=== PATIENT | female | born 1955 | race Caucasian/White ===

== ENCOUNTER → 2020-01-09 15:56 | Outpatient (BNVA) | payer MEDICARE, SELFPAY | PROVIDERS: Family Provider Nurse Practitioner Family; PCP Nurse Practitioner Family; Visit Provider Emergency Medicine | DX: Z11.59 Encounter for screening for other viral diseases (principal); B34.9 Viral infection, unspecified; M54.9 Dorsalgia, unspecified | CPT/HCPCS: 81000; 87635 ==

== ENCOUNTER 2020-01-15 17:13 | Emergency (ER) | payer MEDICARE, SELFPAY ==
[2020-01-15 17:18] VITALS: BP 165/102; PULSE 107; RESP 18; TEMP 36.3; O2SAT 97
[2020-01-15 17:20] VITALS: BMI 34.7
--- NOTE | 2020-01-15 18:18 | ED_ITS ---
HPI - General Adult General: Chief complaint: General Medical Stated complaint: abd pain and side pain Time Seen by Provider: 01/15/20 17:51 Source: patient Mode of arrival: ambulatory Limitations: no limitations History of Present Illness: HPI narrative: 65-year-old female comes in today with multiple complaints. Patient reports since the first of the month she has been ill with malaise, some sores in her mouth, nausea and diarrhea. Patient denies any weight loss. Patient was treated for [id number]-[id number]-mouth. Patient appears well. Patient appears in no pain. Patient has a history of reflux. Patient states that she continues to have diarrhea and cramping in her abdomen. Patient reports that reminds her when she had her gallbladder problems. Review of Systems General: Reports: 10 or more systems reviewed and unremarkable except in HPI and below GI: Reports: abdominal pain and diarrhea PFSH ED PFSH: Social History (Updated 01/09/20 @ 15:56 by Miranda Malcolm CMA) Smoking and tobacco status: never smoked Alcohol intake: never Physical Exam Const: COMMON NORMALS: no acute distress and patient oriented x3 GENERAL APPEARANCE: cooperative HENMT: COMMON NORMALS: normocephalic and Normal external nose present HEAD & SCALP: normal to inspection and normocephalic NOSE: Normal external nose present MOUTH: Normal oral and palatal mucosa present THROAT: posterior oropharynx normal Eye: GENERAL EYE: appearance normal, both eyes and all related structures Neck/C-Spine: COMMON NORMALS: full ROM Lymph: LYMPHATIC: no lymphadenopathy noted Chest: COMMONS NORMALS: normal inspection of the chest Resp: COMMON NORMALS: normal respiratory effort EFFORT & INSPECTION: Yes able to speak in complete sentences Cardio: COMMON NORMALS: regular rate and regular rhythm RATE: regular rate RHYTHM: regular rhythm GI: COMMON NORMALS: non-tender : COMMON NORMALS: Yes no CVA tenderness BLADDER/KIDNEY EXAM: Yes no CVA tenderness Back/Pelvis: COMMON NORMALS: no CVA tenderness and thoracic and lumbar spine normal to inspection Extremity: COMMON NORMALS: normal to inspection Neuro: COMMON NORMALS: patient oriented x3 and moves all extremities Psych: COMMON NORMALS: mental status grossly normal and cooperative Skin: COMMON NORMALS: no rashes or lesions noted GENERAL SKIN EXAM: no rashes or lesions noted Course Vital Signs: Vital signs: Vital Signs Temperature 97.3 F L 01/15/20 17:18 Pulse Rate 107 H 01/15/20 17:18 Respiratory Rate 18 01/15/20 17:18 Blood Pressure 165/102 01/15/20 17:18 Pulse Oximetry 97 01/15/20 17:18 MDM - General Adult MDM Narrative: Medical decision making narrative: Patient comes in today with complaints of persistent diarrhea and nausea. Patient was diagnosed with a viral syndrome at the first of the month and think she is continues to have dif ficulties with this virus. Exam is normal. Vital signs are normal. No signs of significant illness or injury is noted. Differential diagnosis includes dehydration, urinary tract infection, pancreatitis. Laboratory values were normal. Reviewed exam with patient with recommendations for treatment and follow-up. Patient reported understanding and agreed to plan. Lab Data: Labs: Lab Results 01/15/20 01/15/20 01/15/20 Range/Units 18:00 18:20 18:20 WBC 9.0 (4.0-10.0) 10^3/ uL RBC 4.92 (4.1-5.3) 10^6/u L Hgb 14.4 (11.5-15.3) g/dL Hct 43.5 (37.0-47.0) % MCV 88.4 (81-99) fL MCH 29.3 (28.0-34.0) pg MCHC 33.1 (30.0-36.0) g/dL RDW 13.3 (12.1-15.1) % Plt Count 251 (130-400) 10^3/c mm MPV 12.0 H (7.4-10.4) fL Neut % (Auto) 64.1 % Lymph % (Auto) 26.8 % [place] % (Auto) 6.0 % Eos % (Auto) 1.8 % Baso % (Auto) 1.1 % Neut # (Auto) 5.75 (1.8-7.7) 10^3/u L Lymph # (Auto) 2.4 (0.8-4.8) 10^3/u L [place] # (Auto) 0.5 (0.2-0.9) 10^3/u L Eos # (Auto) 0.2 (0.0-0.8) 10^3/u L Baso # (Auto) 0.1 (0.0-0.1) 10^3/u L Nucleated RBC % (a uto) 0 % Nucleated RBCs # 0.0 /100WBC Sodium 136 (136-145) mmol/L Potassium 3.7 (3.5-5.1) mmol/L Chloride 98 (98-107) mmol/L Carbon Dioxide 28 (22-29) mmol/L Anion Gap 13.7 (5-19) BUN 7 L (8-23) mg/dL Creatinine 0.6 (0.5-0.9) mg/dL GFR Calculation 101.0 (90-130) mL/min Glucose 115 (65-115) mg/dL Calculated Osmolal ity 279 L (285-295) mOsm/k g Calcium 9.3 (8.5-10.5) mg/dL Total Bilirubin 0.5 (0.15-1.2) mg/dL AST 10 (0-32) U/L ALT 8 (0-33) U/L Alkaline Phosphata se 71 (35-105) IU/L Total Protein 7.8 (6.6-8.7) g/dL Albumin 4.7 (3.5-5.2) g/dL Globulin 3.1 (1.3-4.6) g/dL Urine Color Yellow (Yellow) Urine Appearance Clear (CLEAR) Urine pH 7 (5-7) Ur Specific Gravit y 1.005 (1.005-1.030) Urine Protein Neg (Negative) Urine Glucose (UA) Norm (Normal) Urine Ketones Negative (Negative) Urine Blood Neg (Negative) Urine Nitrate Negative (Negative) Urine Bilirubin Neg (NEGATIVE) Urine Urobilinogen Norm (Negative) mg/dL Ur Leukocyte Fouzia ase Negative (Negative) Discharge Plan Discharge Patient Disposition: Home Clinical Impression: Viral syndrome Condition: Stable Prescriptions: No Action esomeprazole magnesium [Nexium] 20 mg capsule,delayed release(DR/EC) 20 mg PO DAILY RF: 0 acetaminophen [Tylenol] 325 mg tablet 325 mg PO QID PRNRF: 0 fluticasone propionate 50 mcg/actuation spray,suspension 1 spray INTRANASAL DAILY RF: 0 prednisone 10 mg tablet 30 mg PO DAILY 5 Days Qty: 15 RF: 0 methocarbamol [Robaxin-750] 750 mg tablet 750 mg PO .twice daily 5 Days Qty: 10 RF: 0 Discharge Orders: Discharge Order (Routine); Ordered 01/15/20 Ordered By: Angel Hernandez Referrals: David Ha FNP [Primary Care Provider] - Discharge Diet: Usual diet Discharge Activity: Increase activity as tolerated Activity Restrictions/Additional Instructions: Drink plenty of fluids. Continue with routine medications as directed. Monitor for high fever or blood in vomit or stool. Follow-up with primary care for recheck in 1 week. Return to the emergency department for new concerns. Coding Level of Care Code ED Forensic Computer Examiner for Marlin Fwd Exam Comprehensive
[2020-01-15 18:20] LABS: Add Urine Microscopic? NO
[2020-01-15 18:28] LABS: Basophils # 0.1 10^3/uL (0.0-0.1); Basophils % 1.1 %; Eosinophils # 0.2 10^3/uL (0.0-0.8); Eosinophils % 1.8 %; Hematocrit 43.5 % (37.0-47.0); Hemoglobin 14.4 g/dL (11.5-15.3); Lymphocytes # 2.4 10^3/uL (0.8-4.8); Lymphocytes % 26.8 %; Mean Corpuscular HGB Conc 33.1 g/dL (30.0-36.0); Mean Corpuscular Hemoglobin 29.3 pg (28.0-34.0); Mean Corpuscular Volume 88.4 fL (81-99); Monocytes # 0.5 10^3/uL (0.2-0.9); Neutrophils # 5.75 10^3/uL (1.8-7.7); Neutrophils % 64.1 %; Nucleated Red Blood Cells % 0 %; Platelet Count 251 10^3/cmm (130-400); Red Blood Count 4.92 10^6/uL (4.1-5.3); Red Cell Distribution Width 13.3 % (12.1-15.1)
[2020-01-15 18:31] LABS: Specific Gravity, Urine 1.005 (1.005-1.030); Urine Appearance Clear (CLEAR); Urine Color Yellow (Yellow); pH Urine 7 (5-7)
[2020-01-15 18:32] LABS: Bilirubin Urine Neg (NEGATIVE); Blood Urine Neg (Negative); Glucose Urine UA Norm (Normal); Ketones Urine Negative (Negative); Leukocyte Esterase Urine Negative (Negative); Nitrate Urine Negative (Negative); Protein Urine Neg (Negative); Urobilinogen Urine Norm (Negative)
[2020-01-15 18:47] LABS: Alanine Aminotransferase 8 U/L (0-33); Albumin Level 4.7 g/dL (3.5-5.2); Alkaline Phosphatase 71 IU/L (35-105); Anion Gap 13.7 (5-19); Aspartate Amino Transferase 10 U/L (0-32); Blood Urea Nitrogen 7 mg/dL (8-23); Calcium 9.3 mg/dL (8.5-10.5); Carbon Dioxide 28 mmol/L (22-29); Chloride 98 mmol/L (98-107); Globulin 3.1 g/dL (1.3-4.6); Glucose 115 mg/dL (65-115); Osmolality Calculated 279 mOsm/kg (285-295); Potassium 3.7 mmol/L (3.5-5.1); Sodium 136 mmol/L (136-145); Total Bilirubin 0.5 mg/dL (0.15-1.2); Total Protein 7.8 g/dL (6.6-8.7)
--- NOTE | 2020-01-15 19:00 | XR_ITS ---
WS: [id number] EXAM: ABDOMINAL KUB DATE OF EXAMINATION: 01/15/2020, 1909 hours COMPARISON: None. HISTORY: Patient is 65 years old with abdominal pain. Hives. FINDINGS: The bowel gas pattern is normal. I suspect a small calcification overlying the mid left kidney silhou ette may be 2 mm in size. No other calcification is seen to suggest renal or ureteral calculi. Severa l calcifications in the pelvis are felt to represent phleboliths. Surgical clips in the right upper q uadrant from prior cholecystectomy. Single clip in the left deep pelvis is presumably a free surgical clip related to the prior cholecystectomy. Mild degenerative changes in the spine. XR/XR KUB portable [id number] IMPRESSION: Normal bowel gas pattern. Suspect a small 2 mm nonobstructing calyceal calcific ation overlying the left kidney silhouette.
[2020-01-15 19:39] VITALS: BP 150/100; PULSE 82; RESP 18; O2SAT 96
== END 2020-01-15 19:43 | disposition home or self-care (01) ==
PROVIDERS: Emergency Provider Nurse Practitioner Family; PCP Nurse Practitioner Family
DX: B34.9 Viral infection, unspecified (principal)
CPT/HCPCS: 12345; 74018; 80053; 81003; 85025; 99281; 99283

== ENCOUNTER → 2020-02-10 10:45 | Outpatient (BNVA) | payer MEDICARE, SELFPAY | PROVIDERS: PCP Nurse Practitioner Family; Visit Provider Obstetrics & Gynecology | DX: R30.0 Dysuria (principal) | CPT/HCPCS: 80053; 81003; 87077; 87086; 87186 ==

== ENCOUNTER → 2020-03-10 12:57 | Outpatient (BNVA) | payer MEDICARE, SELFPAY | PROVIDERS: PCP Nurse Practitioner Family; Referring Provider Obstetrics & Gynecology; Visit Provider Nurse Practitioner Family | DX: N30.10 Interstitial cystitis (chronic) without hematuria (principal); B37.3 Candidiasis of vulva and vagina | CPT/HCPCS: 80053; 81001; 87077; 87086; 87184 ==

== ENCOUNTER 2020-03-24 15:14 | Outpatient (CLI) | payer MEDICARE, SELFPAY ==
--- NOTE | 2020-03-24 15:22 | MM_ITS ---
WS: [id number] BILATERAL SCREENING DIGITAL MAMMOGRAM WITH CAD HISTORY: SCREENING COMPARISON: 03/25/2014 Bilateral CC and MLO views submitted. Computer aided detection analyzed. Breast composition: There are scattered areas of fibroglandular density. No suspicious masses, microc alcifications or architectural distortion. Benign calcifications RIGHT breast. MM/[place] [id number] IMPRESSION: BI-RADS: 2-Benign FOLLOW UP: 1 Year Follow-up
== END 2020-03-24 15:15 | disposition home or self-care (01) ==
LOC: RADSHAW 15:21
PROVIDERS: PCP Nurse Practitioner Family; Visit Provider Obstetrics & Gynecology
DX: Z12.31 Encounter for screening mammogram for malignant neoplasm of breast (principal)
CPT/HCPCS: 77067

== ENCOUNTER → 2020-04-26 10:23 | Outpatient (BNVA) | payer MEDICARE, SELFPAY | PROVIDERS: PCP Family Medicine; Visit Provider Urology | DX: N39.0 Urinary tract infection, site not specified (principal) | CPT/HCPCS: 81003 ==

== ENCOUNTER → 2020-04-27 16:55 | Outpatient (BNVA) | payer MEDICARE, SELFPAY | PROVIDERS: PCP Family Medicine; Visit Provider Family Medicine | DX: M12.9 Arthropathy, unspecified (principal) | CPT/HCPCS: 80053; 85651; 86038; 86140 ==

== ENCOUNTER → 2020-06-14 13:32 | Outpatient (BNVA) | payer MEDICARE, SELFPAY | PROVIDERS: PCP Family Medicine; Visit Provider Urology | DX: N30.10 Interstitial cystitis (chronic) without hematuria (principal) | CPT/HCPCS: 81003 ==

== ENCOUNTER → 2020-06-21 13:00 | Outpatient (BNVA) | payer MEDICARE, SELFPAY | PROVIDERS: PCP Family Medicine; Visit Provider Internal Medicine | DX: M79.7 Fibromyalgia (principal); R53.83 Other fatigue; M25.50 Pain in unspecified joint; G89.29 Other chronic pain; Z11.59 Encounter for screening for other viral diseases | CPT/HCPCS: 99204 ==

== ENCOUNTER 2020-06-24 09:07 | Outpatient (CLI) | payer MEDICARE, SELFPAY ==
--- NOTE | 2020-06-24 09:32 | XR_ITS ---
WS: [id number] Exam: XR hand RT 2V [id number] Date/Time of Exam: 06/24/2020 9:32 AM Reason For Exam: M25.50 - Pain in unspecified joint No fracture or dislocation. Minimal degenerative changes of the IP joints. No sign of the bony erosio n or demineralization of bone. Normal soft tissues. XR/XR hand RT 2V [id number] IMPRESSION: 1. Minimal degenerative changes in the IP joints. No other significant finding.
--- NOTE | 2020-06-24 09:32 | XR_ITS ---
WS: [id number] Exam: XR sacroiliac jts m 3V [id number] Date/Time of Exam: 06/24/2020 9:32 AM Reason For Exam: L40.9 - Psoriasis, unspecified No fracture or dislocation. Moderate degenerative change of both SI joints. The SI joints are open. N o sign of bone destruction. XR/XR sacroiliac jts m 3V [id number] IMPRESSION: 1. Moderate bilateral SI joints degenerative change.
--- NOTE | 2020-06-24 09:32 | XR_ITS ---
WS: [id number] Exam: XR foot LT 2V [id number] Date/Time of Exam: 06/24/2020 9:32 AM Reason For Exam: M25.50 - Pain in unspecified joint No fracture or dislocation. Mild degenerative changes are noted. Small plantar heel spur. Normal soft tissues. XR/XR foot LT 2V [id number] IMPRESSION: 1. Mild degenerative changes.
--- NOTE | 2020-06-24 09:32 | XR_ITS ---
WS: [id number] Exam: XR cervical spine fl/ex [id number] Date/Time of Exam: 06/24/2020 9:32 AM Reason For Exam: M25.50 - Pain in unspecified joint No fracture or dislocation. Slight degenerative anterolisthesis of C4 on C5. Degenerative disc narrow ing and spondylosis at C5-6 and C6-7. Mild to moderate facet arthropathy at all levels. No subluxatio n or instability seen on flexion or extension views. Normal paraspinal soft tissues. XR/XR cervical spine fl/ex [id number] IMPRESSION: 1. No fracture, malalignment or instability identified. 2. Degenerative facet changes at all levels. Degenerative disc changes and spon dylosis from C5 to C7.
--- NOTE | 2020-06-24 09:32 | XR_ITS ---
WS: [id number] Exam: XR foot RT 2V [id number] Date/Time of Exam: 06/24/2020 9:32 AM Reason For Exam: ARTHRALGIA No fracture or dislocation. Degenerative change at the first MP joint. Soft tissues are unremarkable. Tiny plantar heel spur. XR/XR foot RT 2V [id number] IMPRESSION: 1. No fracture or dislocation. 2. Mild degenerative change at the first MP joint
--- NOTE | 2020-06-24 09:32 | XR_ITS ---
WS: [id number] Exam: XR hand LT 2V [id number] Date/Time of Exam: 06/24/2020 9:32 AM Reason For Exam: M25.50 - Pain in unspecified joint No fracture or dislocation. Minimal degenerative thinning of the IP joints. No sign of the bony erosi on or demineralization of bone. Normal soft tissues. XR/XR hand LT 2V [id number] IMPRESSION: 1. Minimal degenerative changes.
[2020-06-24 11:37] LABS: Add Urine Microscopic? NO
[2020-06-24 11:38] LABS: Basophils # 0.1 10^3/uL (0.0-0.1); Basophils % 0.9 %; Eosinophils # 0.1 10^3/uL (0.0-0.8); Eosinophils % 1.7 %; Hematocrit 40.2 % (37.0-47.0); Hemoglobin 13.1 g/dL (11.5-15.3); Lymphocytes % 31.5 %; Mean Corpuscular HGB Conc 32.6 g/dL (30.0-36.0); Mean Corpuscular Volume 89.1 fL (81-99); Mean Platelet Volume 12.7 fL (7.4-10.4); Monocytes # 0.3 10^3/uL (0.2-0.9); Monocytes % 4.7 %; Neutrophils % 60.9 %; Nucleated Red Blood Cells % 0 %; Platelet Count 226 10^3/cmm (130-400); Red Blood Count 4.51 10^6/uL (4.1-5.3); Red Cell Distribution Width 13.1 % (12.1-15.1); White Blood Count 6.4 10^3/uL (4.0-10.0)
[2020-06-24 11:46] LABS: Bilirubin Urine Neg (Negative); Blood Urine Neg (Negative); Glucose Urine UA Norm (Normal); Ketones Urine Negative (Negative); Leukocyte Esterase Urine Negative (Negative); Nitrate Urine Negative (Negative); Protein Urine Neg (Negative); Urine Appearance Clear (CLEAR); Urine Color Yellow (Yellow); Urobilinogen Urine Norm (Negative); pH Urine 6.5 (5-7)
[2020-06-24 12:33] LABS: Alanine Aminotransferase 9 U/L (0-33); Albumin Level 4.5 g/dL (3.5-5.2); Alkaline Phosphatase 73 IU/L (35-105); Anion Gap 14.4 (5-19); Aspartate Amino Transferase 13 U/L (0-32); Blood Urea Nitrogen 8 mg/dL (8-23); C Reactive Protein 3.7 mg/L (0.0-4.9); Calcium 9.9 mg/dL (8.5-10.5); Carbon Dioxide 28 mmol/L (22-29); Chloride 102 mmol/L (98-107); Ferritin 32 ng/mL (15-150); Globulin 2.9 g/dL (1.3-4.6); Glucose 96 mg/dL (65-115); Iron 105 ug/dL (37-145); Magnesium 1.6 mg/dL (1.7-2.3); Osmolality Calculated 290 mOsm/kg (285-295); Phosphorus 2.4 mg/dL (2.5-4.5); Potassium 3.4 mmol/L (3.5-5.1); Sodium 141 mmol/L (136-145); Total Bilirubin 0.5 mg/dL (0.15-1.2); Total Protein 7.4 g/dL (6.6-8.7)
[2020-06-24 12:43] LABS: Parathyroid Hormone 55.7 pg/mL (15-65)
[2020-06-24 12:48] LABS: Vitamin B12 225 pg/mL (232-1245)
[2020-06-24 13:48] LABS: Creatine Phosphokinase 475 U/L (26-192)
[2020-06-24 13:50] LABS: Cortisol Random 9.64 ug/dL (2.47-19.5); Hepatitis B Core AB, Total Non-Reactive (Nonreactive); Hepatitis B Surface Antigen Non-Reactive (Nonreactive); Hepatitis C Virus Antibody Non-Reactive (Nonreactive)
[2020-06-24 14:15] LABS: Complement C3 139 mg/dL (90-180)
[2020-06-24 16:45] LABS: Erythrocyte Sedimentation Rate 14 mm/hr (0-15)
[2020-06-27 11:57] LABS: Cyclic Citrullinated Peptide <16 UNITS
[2020-06-27 14:33] LABS: COMPLEMENT COMPONENT C3C 151 mg/dL (83-193); COMPLEMENT COMPONENT C4C 23 mg/dL (15-57)
[2020-06-27 15:03] LABS: COMPLEMENT, TOTAL (CH50) 59 U/mL (31-60)
[2020-06-27 16:39] LABS: Gliadin Ab.IgA 7 U (<20); Gliadin Ab.IgG 3 U (<20)
[2020-06-28 13:58] LABS: CENTROMERE B ANTIBODY <1.0 NEG AI (<1.0 NEG); JO-1 ANTIBODY <1.0 NEG AI (<1.0 NEG); RNP ANTIBODY <1.0 NEG AI (<1.0 NEG); SCL-70 ANTIBODY <1.0 NEG AI (<1.0 NEG); SJOGREN'S ANTIBODY (SS-A) <1.0 NEG AI (<1.0 NEG); SM ANTIBODY <1.0 NEG AI (<1.0 NEG); SS-B <1.0 NEG AI (<1.0 NEG)
[2020-06-28 14:28] LABS: ANA SCREEN, IFA NEGATIVE (NEGATIVE); THYROID PEROXIDASE ANTIBODIES 1 IU/mL (<9)
[2020-06-28 18:03] LABS: Vitamin B1(Thiamin) Plas/Ser 7 nmol/L (8-30)
[2020-06-28 22:37] LABS: Tissue Transglutaminase IgA Ab <1 U/mL; Tissue transglutaminase Ab.IgG 6 U/mL
[2020-06-29 17:39] LABS: HLA-B27 NEGATIVE (NEGATIVE)
[2020-06-29 20:39] LABS: ANCA Interp Negative (Negative)
[2020-06-30 01:14] LABS: DNA AB (DS) CRITHIDIA,IFA NEGATIVE (NEGATIVE)
[2020-06-30 19:14] LABS: Immunoglobulin A 269 mg/dL (70-320)
[2020-07-01 05:18] LABS: Adrenocorticotropic Hormone 39 pg/mL (6-50)
== END 2020-06-24 09:08 | disposition home or self-care (01) ==
LOC: RAD 09:11
PROVIDERS: PCP Family Medicine; Visit Provider Internal Medicine
DX: M25.50 Pain in unspecified joint (principal); L40.9 Psoriasis, unspecified; D86.9 Sarcoidosis, unspecified; Z51.81 Encounter for therapeutic drug level monitoring; M47.812 Spondylosis without myelopathy or radiculopathy, cervical region
CPT/HCPCS: 36415; 72040; 72202; 73120; 73620; 80053; 81003; 82024; 82310; 82533; 82550; 82607; 82728; 82784; 83516; 83540; 83735; 83970; 84100; 84425; 85025; 85651; 86140; 86160; 86431; 86704; 86803; 86812; 87340

== ENCOUNTER 2020-07-19 11:15 | Outpatient (CLI) | payer MEDICARE, SELFPAY ==
[2020-07-19 12:41] LABS: Alanine Aminotransferase 12 U/L (0-33); Albumin Level 4.5 g/dL (3.5-5.2); Alkaline Phosphatase 67 IU/L (35-105); Anion Gap 14.1 (5-19); Aspartate Amino Transferase 16 U/L (0-32); Blood Urea Nitrogen 8 mg/dL (8-23); Calcium 10.2 mg/dL (8.5-10.5); Carbon Dioxide 26 mmol/L (22-29); Chloride 104 mmol/L (98-107); Glomerular Filtration Rate 84.5 mL/min (90-130); Glucose 85 mg/dL (65-115); Osmolality Calculated 288 mOsm/kg (285-295); Potassium 4.1 mmol/L (3.5-5.1); Sodium 140 mmol/L (136-145); Total Bilirubin 0.3 mg/dL (0.15-1.2); Total Protein 7.5 g/dL (6.6-8.7)
[2020-07-19 19:47] LABS: Creatine Phosphokinase 402 U/L (26-192)
== END 2020-07-19 11:16 | disposition home or self-care (01) ==
PROVIDERS: PCP Family Medicine; Visit Provider Internal Medicine
DX: R74.8 Abnormal levels of other serum enzymes (principal)
CPT/HCPCS: 36415; 80053; 82550; 84100; 84182; 86235

== ENCOUNTER → 2020-07-29 09:18 | Outpatient (BNVA) | payer MEDICARE, SELFPAY | PROVIDERS: PCP Family Medicine; Visit Provider Internal Medicine | DX: R74.8 Abnormal levels of other serum enzymes (principal); M25.50 Pain in unspecified joint; R53.83 Other fatigue; E53.8 Deficiency of other specified B group vitamins; R79.0 Abnormal level of blood mineral; K90.0 Celiac disease; M53.3 Sacrococcygeal disorders, not elsewhere classified | CPT/HCPCS: 99214 ==

== ENCOUNTER 2020-08-02 12:41 | Outpatient (CLI) | payer MEDICARE, SELFPAY ==
[2020-08-02 13:28] LABS: Basophils # 0.1 10^3/uL (0.0-0.1); Basophils % 0.7 %; Eosinophils # 0.1 10^3/uL (0.0-0.8); Hematocrit 38.9 % (37.0-47.0); Hemoglobin 12.6 g/dL (11.5-15.3); Lymphocytes # 2.3 10^3/uL (0.8-4.8); Lymphocytes % 33.3 %; Mean Corpuscular HGB Conc 32.4 g/dL (30.0-36.0); Mean Corpuscular Hemoglobin 29.5 pg (28.0-34.0); Mean Corpuscular Volume 91.1 fL (81-99); Mean Platelet Volume 12.3 fL (7.4-10.4); Monocytes # 0.4 10^3/uL (0.2-0.9); Monocytes % 6.2 %; Neutrophils # 3.99 10^3/uL (1.8-7.7); Neutrophils % 57.7 %; Nucleated Red Blood Cells % 0 %; Platelet Count 212 10^3/cmm (130-400); Red Blood Count 4.27 10^6/uL (4.1-5.3); Red Cell Distribution Width 13.4 % (12.1-15.1); White Blood Count 6.9 10^3/uL (4.0-10.0)
[2020-08-02 13:40] LABS: Alanine Aminotransferase 13 U/L (0-33); Albumin Level 4.2 g/dL (3.5-5.2); Alkaline Phosphatase 59 IU/L (35-105); Blood Urea Nitrogen 9 mg/dL (8-23); Calcium 9.8 mg/dL (8.5-10.5); Carbon Dioxide 24 mmol/L (22-29); Chloride 103 mmol/L (98-107); Globulin 2.7 g/dL (1.3-4.6); Glomerular Filtration Rate 84.5 mL/min (90-130); Glucose 113 mg/dL (65-115); Magnesium 1.6 mg/dL (1.7-2.3); Osmolality Calculated 285 mOsm/kg (285-295); Phosphorus 3.1 mg/dL (2.5-4.5); Sodium 138 mmol/L (136-145); Total Bilirubin 0.3 mg/dL (0.15-1.2); Total Protein 6.9 g/dL (6.6-8.7)
[2020-08-02 13:45] LABS: Anion Gap 14.9 (5-19); Potassium 3.9 mmol/L (3.5-5.1)
[2020-08-02 13:46] LABS: Aspartate Amino Transferase 20 U/L (0-32)
[2020-08-02 15:20] LABS: Erythrocyte Sedimentation Rate 11 mm/hr (0-15)
== END 2020-08-02 12:42 | disposition home or self-care (01) ==
PROVIDERS: PCP Family Medicine; Visit Provider Internal Medicine
DX: R74.8 Abnormal levels of other serum enzymes (principal); D86.9 Sarcoidosis, unspecified; K90.0 Celiac disease; M12.9 Arthropathy, unspecified
CPT/HCPCS: 36415; 80053; 83735; 84100; 85025; 85651

== ENCOUNTER → 2020-08-26 00:01 | Outpatient (BNVA) | payer MEDICARE, SELFPAY | PROVIDERS: PCP Family Medicine; Referring Provider Surgery; Visit Provider Surgery | DX: Z20.822 Contact with and (suspected) exposure to COVID-19 (principal); R74.8 Abnormal levels of other serum enzymes | CPT/HCPCS: 87635 ==

== ENCOUNTER 2020-08-30 10:20 | Day surgery (SDC) | payer MEDICARE, SELFPAY ==
[2020-08-29 08:43] VITALS: BMI 34.3
[2020-08-30 10:50] VITALS: BP 177/105; PULSE 86; RESP 18; TEMP 36.6; O2SAT 96
--- NOTE | 2020-08-30 11:00 | W.PM.OPSUD ---
Surgery/Procedure H&P Update DATE OF PROCEDURE: August 30, 2020 DATE H&P PERFORMED: 08/16/20 H&P UPDATE INFORMATION: I have reviewed H&P completed within last 30 days, I have examined patient prior to procedure and No changes to prior documentation PREOP DIAGNOSIS: abnormal cpk PLANNED PROCEDURE: Operation Date: 08/30/20 12:00 Proposed Procedures p Muscle Biopsy Right Thigh K90.0(Right) - Asif Lopez MD
[2020-08-30] MEDS: sodium chloride 0.9% 1,000 ML 30 ML IV (11:05)
--- NOTE | 2020-08-30 11:30 | ANES.PREANE2 ---
Pre-Anesthetic Assessment Pre-Anesthetic Assessment: Height/Weight: Height 1.6 m Weight 87.997 kg Temp Pulse Resp BP Pulse Ox 98 F 86 18 177/105 96 08/30/20 10:50 08/30/20 10:50 08/30/20 10:50 08/30/20 10:50 08/30/20 10:50 Preop Diagnosis: abnormal cpk Proposed Procedure: Operation Date: 08/30/20 12:00 Proposed Procedures p Muscle Biopsy Right Thigh K90.0(Right) - Asif Lopez MD Familial anesthetic complications: None Was Beta Rebekah taken within 24 hours: N/A Was Clonidine taken within 24 hours: N/A Last intake: Intake Last Liquid Date 08/29/20 Last Liquid Time 23:45 Last Solid Date 08/29/20 Last Solid Time 19:00 Social: Social History: No alcohol and No tobacco Exam: Pre-Anes Outpt Exam: alert, oriented x 3, clear to auscultation bilaterally and regular rate & rhythm Airway: Cervical ROM: WNL MP: 1 Dentition: False GI: GI: GERD Comments: celiac disease Musc/skel: Comments: increased CPK and muscle soreness Anesthetic Plan: ASA status: 3 Anesthesia: MAC Risk of > 500 ml blood loss (7ml/kg in children): No Meds/Allergies Current Medications: Current Medications Generic Name Dose Route Start Last Admin Trade Name Freq PRN Reason Stop Dose Admin Sodium Chloride 1,000 mls @ 30 ml s/hr 08/30/20 10:30 08/30/20 11:05 Sodium Chloride 0.9% IV 08/31/20 10:29 30 mls/hr .Q24H IFEOMA Administration PFSH Anesthesia PFSH: Medical History (Updated 08/19/20 @ 17:21 by Asif Lopez MD) Chronic GERD Fibromyalgia States that she has had fibromyalgia since 2014. Hypothyroidism States that she was hypo-thyroid from about 2005 until 2014 and was on medication. She states at that point she has had lab work done and medications were stopped since her levels were normal. Interstitial cystitis States that she was diagnosed with interstitial cystitis 02/2017 at [facility] by Dr. Bass. She has not been on any medications. She does not know if she has had a cystoscopy. Recurrent UTI Yeast vaginitis Surgical History (Updated 08/16/20 @ 15:54 by Nisha Samayoa) S/P dilation and curettage 1978 for a miscarriage S/P laparoscopic cholecystectomy 1991--laparoscopic procedure Status post hysterectomy 1988--laparoscopic hysterectomy with removal of both ovaries and tubes done for endometriosis Status post tubal ligation 1982-- through umbilicus Family History Family/Other Breast cancer maternal aunt, diagnosed at age 53 Diabetes maternal great aunt Grandmother Colon cancer maternal, diagnosed in her 50s Grandfather Heart disease maternal Hyperlipidemia maternal Thyroid condition maternal Mother Thyroid condition Son Thyroid condition Sister Thyroid condition Denies family history of Ovarian cancer Hypertension Uterine cancer Stroke Social History Smoking and tobacco status: never smoked Alcohol intake: never Marital status: Current occupational status: disabled Data Anesthesia Cardiac Studies: No Data to Display
[2020-08-30] MEDS: vancomycin 1,000 MG in sodium chloride 0.9% 250 ML 250 MG IV (11:34)
[2020-08-30 13:17] VITALS: BP 115/69; PULSE 75; RESP 18; TEMP 36.5; O2SAT 92
[2020-08-30 13:20] VITALS: BP 135/81; PULSE 75; RESP 18; O2SAT 95
[2020-08-30 13:25] VITALS: BP 135/81; PULSE 74; RESP 18; O2SAT 96
[2020-08-30 13:32] VITALS: BP 129/88; PULSE 75; RESP 15; TEMP 36.9; O2SAT 96
[2020-08-30 14:23] VITALS: BP 144/65; PULSE 60; RESP 18; O2SAT 97
--- NOTE | 2020-08-30 18:00 | ANE.PACU2 ---
Inpatient post-anesthesia follow up: Airway intact: Yes Vital signs: Temperature 98.4 F Pulse Rate 60 Respiratory Rate 18 Blood Pressure 144/65 Pulse Oximetry 97 Oxygen Delivery Me thod Room Air Oxygen Flow Rate Fraction of Inspir ed Oxygen Hydration adequate: Yes Nausea and vomiting: No Pain level: 3 Mental status: Baseline
--- NOTE | 2020-08-31 16:47 | P.OP_ITS ---
Operative Report Date of procedure: August 30, 2020 Pre-op Diagnosis: Elevated CPK Post-op diagnosis: same Procedure Done: Right rectus femoris muscle biopsy Implants: Specimens removed/disposition: Right rectus femoris muscle biopsy Surgeon: Asif Lopez Anesthesia: MAC Condition: stable Disposition: PACU Procedure: The patient was taken to the operating room and placed under MAC after IV antibiotic had been administered. The right thigh was prepped and draped in a sterile manner. Using a 15 blade a 4 cm incision was made, subcutaneous tissues divided using electrocautery and the muscular fascia was divided to identify the rectus femoris muscle. 2 separate 4 cm x 1 x 1 cm segments of rectus muscle were cut with scissors and sent to pathology wrapped in Telfa. Wound was irrigated with saline and the muscular fascia was closed using 0 Vicryl suture, subcutaneous tissues were approximated using 3-0 Vicryl suture and skin was closed using running subcuticular 4 Monocryl suture and cheung rgical glue. The patient was transferred to recovery room in stable condition.
== END 2020-08-30 14:22 | disposition home or self-care (01) ==
PROVIDERS: PCP Family Medicine; Visit Provider Surgery
PROC: (CPT 20205; principal; 2020-08-30 12:00)
DX: R79.89 Other specified abnormal findings of blood chemistry (principal); K90.0 Celiac disease; M79.7 Fibromyalgia; E03.9 Hypothyroidism, unspecified
CPT/HCPCS: 20205; 88300; J2250; J2405; J2704; J3010; J3370; J3490; J7030; J7050

== ENCOUNTER → 2020-09-13 14:20 | Outpatient (BNVA) | payer MEDICARE, SELFPAY | PROVIDERS: PCP Family Medicine; Visit Provider Urology | DX: N30.80 Other cystitis without hematuria (principal) | CPT/HCPCS: 81003 ==

== ENCOUNTER → 2020-10-12 14:00 | Outpatient (BNVA) | payer MEDICARE, SELFPAY | PROVIDERS: PCP Family Medicine; Visit Provider Internal Medicine | DX: R74.8 Abnormal levels of other serum enzymes (principal); M53.3 Sacrococcygeal disorders, not elsewhere classified; R79.0 Abnormal level of blood mineral; E53.8 Deficiency of other specified B group vitamins; K90.0 Celiac disease; M25.50 Pain in unspecified joint; Z79.899 Other long term (current) drug therapy | CPT/HCPCS: 36415; 80053; 82550; 84100; 85651; 86140; 99214 ==

== ENCOUNTER → 2020-11-23 10:40 | Outpatient (BNVA) | payer MEDICARE, SELFPAY | PROVIDERS: PCP Family Medicine; Referring Provider Internal Medicine; Visit Provider Anesthesiology Pain Medicine | DX: G89.29 Other chronic pain (principal); K90.0 Celiac disease; M79.7 Fibromyalgia; M47.816 Spondylosis without myelopathy or radiculopathy, lumbar region; M47.812 Spondylosis without myelopathy or radiculopathy, cervical region; M54.9 Dorsalgia, unspecified; M25.50 Pain in unspecified joint; M12.9 Arthropathy, unspecified; Z79.891 Long term (current) use of opiate analgesic | CPT/HCPCS: 99205 ==

== ENCOUNTER → 2020-12-05 14:58 | Outpatient (BNVA) | payer MEDICARE, SELFPAY | PROVIDERS: PCP Family Medicine; Visit Provider Anesthesiology Pain Medicine | DX: G89.29 Other chronic pain (principal); M53.3 Sacrococcygeal disorders, not elsewhere classified; M54.2 Cervicalgia; M54.9 Dorsalgia, unspecified | CPT/HCPCS: G0260; J1030; J3490 ==

== ENCOUNTER → 2020-12-19 11:04 | Outpatient (BNVA) | payer MEDICARE, SELFPAY | PROVIDERS: PCP Family Medicine; Visit Provider Anesthesiology Pain Medicine | DX: G89.29 Other chronic pain (principal); M79.18 Myalgia, other site; M47.812 Spondylosis without myelopathy or radiculopathy, cervical region; M47.816 Spondylosis without myelopathy or radiculopathy, lumbar region; K90.0 Celiac disease; M25.50 Pain in unspecified joint; M12.9 Arthropathy, unspecified | CPT/HCPCS: 20553; 99213; 99214 ==

== ENCOUNTER → 2020-12-27 14:55 | Outpatient (BNVA) | payer MEDICARE, SELFPAY | PROVIDERS: PCP Family Medicine; Visit Provider Urology | DX: N30.80 Other cystitis without hematuria (principal); B37.3 Candidiasis of vulva and vagina | CPT/HCPCS: 81003 ==

== ENCOUNTER 2021-01-24 11:12 | Outpatient (CLI) | payer MEDICARE, SELFPAY ==
[2021-01-24 12:05] LABS: Basophils # 0.1 10^3/uL (0.0-0.1); Basophils % 0.7 %; Eosinophils # 0.2 10^3/uL (0.0-0.8); Eosinophils % 2.6 %; Hematocrit 41.4 % (37.0-47.0); Hemoglobin 13.7 g/dL (11.5-15.3); Lymphocytes # 1.9 10^3/uL (0.8-4.8); Lymphocytes % 25.9 %; Mean Corpuscular HGB Conc 33.1 g/dL (30.0-36.0); Mean Corpuscular Hemoglobin 30.6 pg (28.0-34.0); Mean Corpuscular Volume 92.6 fl (81-99); Mean Platelet Volume 12.8 fL (7.4-10.4); Monocytes # 0.5 10^3/uL (0.2-0.9); Neutrophils # 4.81 10^3/uL (1.8-7.7); Neutrophils % 64.5 %; Nucleated Red Blood Cells % 0 %; Platelet Count 250 10^3/cmm (130-400); Red Blood Count 4.47 10^6/uL (4.1-5.3); Red Cell Distribution Width 12.6 % (12.1-15.1); White Blood Count 7.5 10^3/uL (4.0-10.0)
[2021-01-24 12:28] LABS: Alanine Aminotransferase 9 U/L (0-33); Albumin Level 4.1 g/dL (3.5-5.2); Alkaline Phosphatase 66 IU/L (35-105); Anion Gap 13.7 (5-19); Aspartate Amino Transferase 15 U/L (0-32); Blood Urea Nitrogen 6 mg/dL (8-23); C Reactive Protein 12.9 mg/L (0.0-4.9); Calcium 9.2 mg/dL (8.5-10.5); Carbon Dioxide 27 mmol/L (22-29); Chloride 101 mmol/L (98-107); Globulin 3.2 g/dL (1.3-4.6); Glomerular Filtration Rate 100.6 mL/min (90-130); Glucose 98 mg/dL (65-115); Osmolality Calculated 284 mOsm/kg (285-295); Potassium 3.7 mmol/L (3.5-5.1); Sodium 138 mmol/L (136-145); Total Bilirubin 0.4 mg/dL (0.15-1.2); Total Protein 7.3 g/dL (6.6-8.7)
[2021-01-24 13:09] LABS: Erythrocyte Sedimentation Rate 39 mm/hr (0-15)
== END 2021-01-24 11:13 | disposition home or self-care (01) ==
PROVIDERS: PCP Family Medicine; Visit Provider Internal Medicine
DX: M12.9 Arthropathy, unspecified (principal); R79.0 Abnormal level of blood mineral; E53.8 Deficiency of other specified B group vitamins; R74.8 Abnormal levels of other serum enzymes; Z79.899 Other long term (current) drug therapy
CPT/HCPCS: 36415; 80053; 85025; 85651; 86140

== ENCOUNTER → 2021-02-10 10:39 | Outpatient (BNVA) | payer MEDICARE, SELFPAY | PROVIDERS: PCP Family Medicine; Visit Provider Surgery | DX: K21.9 Gastro-esophageal reflux disease without esophagitis (principal); R10.13 Epigastric pain; Z12.11 Encounter for screening for malignant neoplasm of colon; Z20.822 Contact with and (suspected) exposure to COVID-19; Z80.0 Family history of malignant neoplasm of digestive organs | CPT/HCPCS: 87635 ==

== ENCOUNTER 2021-02-16 08:55 | Day surgery (SDC) | payer MEDICARE, SELFPAY ==
[2021-02-13 10:50] VITALS: BMI 32.9
--- NOTE | 2021-02-16 09:09 | W.PM.OPSUD ---
Surgery/Procedure H&P Update DATE OF PROCEDURE: February 16, 2021 DATE H&P PERFORMED: 02/10/21 H&P UPDATE INFORMATION: I have reviewed H&P completed within last 30 days, I have examined patient prior to procedure and No changes to prior documentation PREOP DIAGNOSIS: Elevated CPK PLANNED PROCEDURE: Operation Date: 02/16/21 10:45 Proposed Procedures p EGD/colon 03384 [id number] K21.9 Z12.11(Not Applicable) - Asif Lopze MD s Colonoscopy(Not Applicable) - Asif Lopez MD
--- NOTE | 2021-02-16 09:31 | ANES.PREANE2 ---
Pre-Anesthetic Assessment Pre-Anesthetic Assessment: Height/Weight: Height 1.57 m Weight 81.647 kg Preop Diagnosis: panendoscopy Proposed Procedure: Operation Date: 02/16/21 10:45 Proposed Procedures p EGD/colon 79576 [id number] K21.9 Z12.11(Not Applicable) - Asif Lopez MD s Colonoscopy(Not Applicable) - Asif Lopez MD Was Beta Rebekah taken within 24 hours: N/A Was Clonidine taken within 24 hours: N/A Social: Social History: No alcohol and No tobacco Exam: Pre-Anes Outpt Exam: alert, oriented x 3, clear to auscultation bilaterally and regular rate & rhythm Airway: Submandibular: WNL Cervical ROM: WNL MP: 2 Dentition: Chipped Additional comments: poor dentition, upper edentulous, lower multiple missing and chipped GI: GI: GERD Comments: Celiac Metabolic: Metabolic: Morbid obesity Anesthetic Plan: ASA status: 3 Anesthesia: MAC Risk of > 500 ml blood loss (7ml/kg in children): No PFSH Anesthesia PFSH: Medical History (Updated 02/10/21 @ 10:23 by Asif Lopez MD) Chronic GERD Cystitis cystica Fibromyalgia States that she has had fibromyalgia since 2014. History of celiac disease Hypothyroidism States that she was hypo-thyroid from about 2005 until 2014 and was on medication. She states at that point she has had lab work done and medications were stopped since her levels were normal. Interstitial cystitis States that she was diagnosed with interstitial cystitis 02/2017 at [facility] by Dr. Bass. She has not been on any medications. She does not know if she has had a cystoscopy. Recurrent UTI Trigeminal neuralgia of right side of face Yeast vaginitis Surgical History History of colonoscopy 2013 S/P dilation and curettage 1978 for a miscarriage S/P laparoscopic cholecystectomy 1991--laparoscopic procedure Status post biopsy (08/30/20) right thigh muscle Status post hysterectomy 1988--laparoscopic hysterectomy with removal of both ovaries and tubes done for endometriosis Status post tubal ligation 1982-- through umbilicus Family History Family/Other Breast cancer maternal aunt, diagnosed at age 53 Diabetes maternal great aunt Grandmother Colon cancer maternal, diagnosed in her 50s Grandfather Heart disease maternal Hyperlipidemia maternal Thyroid condition maternal Mother Thyroid condition Son Thyroid condition Sister Thyroid condition Denies family history of Ovarian cancer Hypertension Uterine cancer Stroke Social History Second hand smoke exposure: Yes Alcohol intake: never Marital status: Current occupational status: disabled History of recent travel: No Data Anesthesia Cardiac Studies: No Data to Display
[2021-02-16 10:03] VITALS: BP 155/97; PULSE 79; RESP 16; TEMP 36.5; O2SAT 98
[2021-02-16] MEDS: sodium chloride 0.9% 1,000 ML 30 ML IV (10:26)
[2021-02-16 12:06] VITALS: BP 138/89; PULSE 65; RESP 16; TEMP 36.1; O2SAT 96
[2021-02-16 12:18] VITALS: BP 146/87; PULSE 60; RESP 18; O2SAT 99
--- NOTE | 2021-02-16 14:25 | ANE.PACU2 ---
Inpatient post-anesthesia follow up: Airway intact: Yes Vital signs: Temperature 97 F Pulse Rate 60 Respiratory Rate 18 Blood Pressure 146/87 Pulse Oximetry 99 Oxygen Delivery Me thod Room Air Oxygen Flow Rate 3 Fraction of Inspir ed Oxygen Hydration adequate: Yes Nausea and vomiting: No Pain level: 1 Mental status: Baseline
== END 2021-02-16 12:46 | disposition home or self-care (01) ==
PROVIDERS: PCP Family Medicine; Visit Provider Surgery
PROC: 0DJ08ZZ Inspection of Upper Intestinal Tract, Via Natural or Artificial Opening Endoscopic (ICD-10-PCS; CPT 43235; principal; 2021-02-16 10:45)
PROC: 0DJD8ZZ Inspection of Lower Intestinal Tract, Via Natural or Artificial Opening Endoscopic (ICD-10-PCS; CPT 45378; 2021-02-16 10:45)
DX: Z12.11 Encounter for screening for malignant neoplasm of colon (principal); K21.9 Gastro-esophageal reflux disease without esophagitis; K44.9 Diaphragmatic hernia without obstruction or gangrene; K29.70 Gastritis, unspecified, without bleeding; K22.2 Esophageal obstruction; D12.2 Benign neoplasm of ascending colon; K57.30 Diverticulosis of large intestine without perforation or abscess without bleeding; K64.8 Other hemorrhoids; E66.01 Morbid (severe) obesity due to excess calories; Z68.32 Body mass index [BMI] 32.0-32.9, adult; M79.7 Fibromyalgia; E03.9 Hypothyroidism, unspecified; Z80.0 Family history of malignant neoplasm of digestive organs; Z82.49 Family history of ischemic heart disease and other diseases of the circulatory system; Z83.3 Family history of diabetes mellitus
CPT/HCPCS: 43239; 45380; 88305; 96360; 96361; J2704; J7030

== ENCOUNTER → 2021-03-20 09:58 | Outpatient (BNVA) | payer MEDICARE, SELFPAY | PROVIDERS: PCP Family Medicine; Visit Provider Anesthesiology Pain Medicine | DX: G89.29 Other chronic pain (principal); M47.812 Spondylosis without myelopathy or radiculopathy, cervical region; M47.816 Spondylosis without myelopathy or radiculopathy, lumbar region; M12.9 Arthropathy, unspecified; R39.89 Other symptoms and signs involving the genitourinary system; M79.604 Pain in right leg; M79.605 Pain in left leg; M79.7 Fibromyalgia; K90.0 Celiac disease | CPT/HCPCS: 99213; 99214 ==

== ENCOUNTER 2021-03-20 10:54 | Outpatient (CLI) | payer MEDICARE, SELFPAY ==
[2021-03-20 12:19] LABS: Creatine Phosphokinase 219 U/L (26-192); Magnesium 1.6 mg/dL (1.7-2.3)
== END 2021-03-20 10:55 | disposition home or self-care (01) ==
LOC: LAB 10:57
PROVIDERS: PCP Family Medicine; Visit Provider Internal Medicine
DX: D86.9 Sarcoidosis, unspecified (principal); R74.8 Abnormal levels of other serum enzymes
CPT/HCPCS: 82550; 83735

== ENCOUNTER → 2021-04-04 14:51 | Outpatient (BNVA) | payer MEDICARE, SELFPAY | PROVIDERS: PCP Family Medicine; Visit Provider Anesthesiology Pain Medicine | DX: G89.29 Other chronic pain (principal); M53.3 Sacrococcygeal disorders, not elsewhere classified | CPT/HCPCS: 77002; G0260; J1040; J3490 ==

== ENCOUNTER 2021-04-12 09:41 | Outpatient (CLI) | payer MEDICARE, SELFPAY ==
--- NOTE | 2021-04-12 09:50 | MM_ITS ---
WS: [id number] BILATERAL SCREENING DIGITAL MAMMOGRAM WITH CAD HISTORY: SCREENING COMPARISON: 03/24/2020, 03/25/2014 Bilateral CC and MLO views submitted. Computer aided detection analyzed. Breast composition: There are scattered areas of fibroglandular density. No suspicious masses, microc alcifications or architectural distortion. Benign calcifications scattered within each breast. MM/[place] [id number] IMPRESSION: BI-RADS: 2-Benign FOLLOW UP: 1 Year Follow-up
== END 2021-04-12 09:42 | disposition home or self-care (01) ==
LOC: RADSHAW 09:42
PROVIDERS: PCP Family Medicine; Visit Provider Family Medicine
DX: Z12.31 Encounter for screening mammogram for malignant neoplasm of breast (principal)
CPT/HCPCS: 77067

== ENCOUNTER → 2021-05-08 12:50 | Outpatient (BNVA) | payer MEDICARE, SELFPAY | PROVIDERS: PCP Family Medicine; Visit Provider Internal Medicine | DX: R74.8 Abnormal levels of other serum enzymes (principal); K90.0 Celiac disease; M53.3 Sacrococcygeal disorders, not elsewhere classified; R79.0 Abnormal level of blood mineral; R21 Rash and other nonspecific skin eruption; Z79.899 Other long term (current) drug therapy; E53.8 Deficiency of other specified B group vitamins | CPT/HCPCS: 80053; 82533; 82550; 84100; 85651; 86140; 99214 ==

== ENCOUNTER 2021-05-08 14:20 | Outpatient (CLI) | payer MEDICARE, SELFPAY | END 2021-05-08 14:21 | disposition home or self-care (01) | LOC: LAB 14:23 | PROVIDERS: PCP Family Medicine; Visit Provider Internal Medicine | DX: R74.8 Abnormal levels of other serum enzymes (principal); E53.8 Deficiency of other specified B group vitamins; R79.0 Abnormal level of blood mineral; K90.0 Celiac disease | CPT/HCPCS: 80053; 82533; 82550; 84100; 85651; 86140 ==

== ENCOUNTER → 2021-05-22 14:44 | Outpatient (BNVA) | payer MEDICARE, SELFPAY | PROVIDERS: PCP Family Medicine; Visit Provider Internal Medicine | DX: R74.8 Abnormal levels of other serum enzymes (principal) | CPT/HCPCS: 85025 ==

== ENCOUNTER 2021-08-14 10:28 | Outpatient (CLI) | payer MEDICARE, SELFPAY ==
[2021-08-14 11:06] LABS: Basophils # 0.1 10^3/uL (0.0-0.1); Basophils % 0.5 %; Eosinophils # 0.3 10^3/uL (0.0-0.8); Eosinophils % 2.8 %; Hematocrit 41.6 % (37.0-47.0); Hemoglobin 13.9 g/dL (11.5-15.3); Lymphocytes # 2.8 10^3/uL (0.8-4.8); Lymphocytes % 28.1 %; Mean Corpuscular HGB Conc 33.4 g/dL (30.0-36.0); Mean Corpuscular Hemoglobin 30.8 pg (28.0-34.0); Mean Corpuscular Volume 92.2 fl (81-99); Monocytes # 0.7 10^3/uL (0.2-0.9); Neutrophils # 6.04 10^3/uL (1.8-7.7); Neutrophils % 61.4 %; Nucleated Red Blood Cells % 0 %; Platelet Count 226 10^3/cmm (130-400); Red Blood Count 4.51 10^6/uL (4.1-5.3); Red Cell Distribution Width 12.9 % (12.1-15.1); White Blood Count 9.9 10^3/uL (4.0-10.0)
[2021-08-14 11:31] LABS: Alanine Aminotransferase 10 U/L (0-33); Albumin Level 4.4 g/dL (3.5-5.2); Alkaline Phosphatase 58 IU/L (35-105); Anion Gap 15.3 (5-19); Aspartate Amino Transferase 12 U/L (0-32); Blood Urea Nitrogen 7 mg/dL (8-23); C Reactive Protein 9.4 mg/L (0.0-4.9); Calcium 9.8 mg/dL (8.5-10.5); Carbon Dioxide 27 mmol/L (22-29); Chloride 102 mmol/L (98-107); Globulin 2.8 g/dL (1.3-4.6); Glomerular Filtration Rate 100.6 mL/min (90-130); Glucose 105 mg/dL (65-115); Osmolality Calculated 288 mOsm/kg (285-295); Potassium 4.3 mmol/L (3.5-5.1); Sodium 140 mmol/L (136-145); Total Bilirubin 0.5 mg/dL (0.15-1.2); Total Protein 7.2 g/dL (6.6-8.7)
[2021-08-14 11:34] LABS: Erythrocyte Sedimentation Rate 12 mm/hr (0-15)
== END 2021-08-14 10:29 | disposition home or self-care (01) ==
LOC: LAB 10:30
PROVIDERS: PCP Family Medicine; Visit Provider Internal Medicine
DX: M47.812 Spondylosis without myelopathy or radiculopathy, cervical region (principal); M47.816 Spondylosis without myelopathy or radiculopathy, lumbar region; Z79.899 Other long term (current) drug therapy
CPT/HCPCS: 36415; 80053; 85025; 85651; 86140

== ENCOUNTER → 2021-08-17 13:39 | Outpatient (BNVA) | payer MEDICARE, SELFPAY | PROVIDERS: PCP Family Medicine; Visit Provider Internal Medicine | DX: M79.7 Fibromyalgia (principal); R74.8 Abnormal levels of other serum enzymes; R76.8 Other specified abnormal immunological findings in serum; E53.8 Deficiency of other specified B group vitamins; M25.50 Pain in unspecified joint | CPT/HCPCS: 99214 ==

== ENCOUNTER 2021-09-08 12:34 | Outpatient (CLI) | payer MEDICARE, SELFPAY ==
--- NOTE | 2021-09-08 13:00 | CT_ITS ---
WS: [id number] Exam: CT chest wo con [id number] Date/Time of Exam: 09/08/2021 12:56 PM Reason For Exam: R22.2 - Localized swelling, mass and lump, trunk DLP: 710.[address] scans at [facility] use at least one of these dose optimization techniques: automated e xposure control; mA and/or kV adjustment per patient size (includes targeted exams where dose is matc hed to clinical indication); or iterative reconstruction. The lungs are clear and fully expanded. The airway is patent. The thoracic aorta is normal in caliber . No mediastinal or hilar lymphadenopathy. No significant axillary lymphadenopathy. Large hiatal rosalba ia. No pleural or pericardial effusion. Normal thyroid tissue. The anterior costal chondral cartilage structures are mildly irregular bilaterally however this appears to represent normal variation. The appearance is benign. No other significant chest wall defect is seen. No destructive bone lesions are seen. CT sections of the upper abdomen are otherwise unremarkable. CT/CT chest wo con [id number] IMPRESSION: 1. Mild irregularity of the anterior costal chondral cartilage structures bilat erally which represents normal variation. No significant chest wall defect is d emonstrated. 2. No sign of pulmonary nodule or mass. No lymphadenopathy in the chest. 3. Large fixed hiatal hernia comprising about one third of the stomach.
== END 2021-09-08 12:35 | disposition home or self-care (01) ==
PROVIDERS: PCP Family Medicine; Visit Provider Internal Medicine
DX: R22.2 Localized swelling, mass and lump, trunk (principal); K44.9 Diaphragmatic hernia without obstruction or gangrene
CPT/HCPCS: 71250

== ENCOUNTER → 2021-09-20 10:25 | Outpatient (BNVA) | payer MEDICARE, SELFPAY | PROVIDERS: PCP Family Medicine; Visit Provider Internal Medicine | DX: E53.8 Deficiency of other specified B group vitamins (principal); R74.8 Abnormal levels of other serum enzymes; R76.8 Other specified abnormal immunological findings in serum; R79.0 Abnormal level of blood mineral; M47.816 Spondylosis without myelopathy or radiculopathy, lumbar region; R22.2 Localized swelling, mass and lump, trunk | CPT/HCPCS: 80053; 82550; 82607; 83735; 85025; 85651; 86140 ==

== ENCOUNTER → 2021-10-05 14:07 | Outpatient (BNVA) | payer MEDICARE, SELFPAY | PROVIDERS: PCP Family Medicine; Visit Provider Internal Medicine | DX: R76.8 Other specified abnormal immunological findings in serum (principal); R74.8 Abnormal levels of other serum enzymes; M25.50 Pain in unspecified joint; Z79.899 Other long term (current) drug therapy; K90.0 Celiac disease | CPT/HCPCS: 99214 ==

== ENCOUNTER → 2021-11-21 14:28 | Outpatient (BNVA) | payer MEDICARE, SELFPAY | PROVIDERS: PCP Family Medicine; Visit Provider Internal Medicine | DX: R76.8 Other specified abnormal immunological findings in serum (principal); R74.8 Abnormal levels of other serum enzymes; L29.9 Pruritus, unspecified; T50.905A Adverse effect of unspecified drugs, medicaments and biological substances, initial encounter | CPT/HCPCS: 36415; 80053; 81003; 82550; 82553; 83735; 84439; 84443; 85025; 85651; 86140; 99214 ==

== ENCOUNTER → 2022-01-02 13:18 | Outpatient (BNVA) | payer MEDICARE, SELFPAY | PROVIDERS: PCP Family Medicine; Visit Provider Nurse Practitioner Family | DX: N30.80 Other cystitis without hematuria (principal) | CPT/HCPCS: 81003; 99213 ==

== ENCOUNTER 2022-04-18 14:23 | Outpatient (CLI) | payer MEDICARE, SELFPAY ==
--- NOTE | 2022-04-18 14:31 | MM_ITS ---
WS: [id number] BILATERAL 3D TOMOSYNTHESIS DIGITAL SCREENING MAMMOGRAPHY WITH CAD CLINICAL INFORMATION: SCREENING HISTORY: Screening mammogram. No current complaints. COMPARISON: 2020 TECHNIQUE: Bilateral CC and MLO views. FINDINGS: Scattered fibroglandular densities bilaterally. No suspicious focal mass, asymmetry, calcifications, or architectural distortion. No evidence of malignancy. Vascular calcification. Stable intramammary l ymph node LEFT breast. Punctate calcification RIGHT breast. MM/[place] [id number] IMPRESSION: BI-RADS: 2-Benign FOLLOW UP: 1 Year Follow-up Recommend return to annual screening mammography.
== END 2022-04-18 14:24 | disposition home or self-care (01) ==
LOC: RAD 14:25
PROVIDERS: PCP Family Medicine; Visit Provider Family Medicine
DX: Z12.31 Encounter for screening mammogram for malignant neoplasm of breast (principal)
CPT/HCPCS: 77063; 77067

== ENCOUNTER → 2022-04-23 14:16 | Outpatient (BNVA) | payer MEDICARE, SELFPAY | PROVIDERS: PCP Family Medicine; Visit Provider Family Medicine | DX: H92.01 Otalgia, right ear (principal); H93.11 Tinnitus, right ear; M89.8X1 Other specified disorders of bone, shoulder; M25.511 Pain in right shoulder | CPT/HCPCS: 73000; 73030 ==

== ENCOUNTER 2022-04-24 10:39 | Outpatient (CLI) | payer MEDICARE, SELFPAY ==
[2022-04-24 11:18] LABS: Basophils # 0.1 10^3/uL (0.0-0.1); Basophils % 0.9 %; Eosinophils # 0.1 10^3/uL (0.0-0.8); Eosinophils % 2.6 %; Hematocrit 40.2 % (37.0-47.0); Hemoglobin 13.5 g/dL (11.5-15.3); Mean Corpuscular HGB Conc 33.6 g/dL (30.0-36.0); Mean Corpuscular Hemoglobin 30.6 pg (28.0-34.0); Mean Corpuscular Volume 91.2 fl (81-99); Mean Platelet Volume 12.2 fL (7.4-10.4); Monocytes # 0.4 10^3/uL (0.2-0.9); Monocytes % 6.6 %; Neutrophils # 2.76 10^3/uL (1.8-7.7); Neutrophils % 51.7 %; Nucleated Red Blood Cells % 0 %; Platelet Count 231 10^3/cmm (130-400); Red Blood Count 4.41 10^6/uL (4.1-5.3); Red Cell Distribution Width 13.1 % (12.1-15.1); White Blood Count 5.3 10^3/uL (4.0-10.0)
[2022-04-24 11:19] LABS: Erythrocyte Sedimentation Rate 7 mm/hr (0-15)
[2022-04-24 11:26] LABS: Alanine Aminotransferase 11 U/L (0-33); Albumin Level 4.2 g/dL (3.5-5.2); Alkaline Phosphatase 64 U/L (35-105); Anion Gap 13.9 (5-19); Aspartate Amino Transferase 15 U/L (0-32); Blood Urea Nitrogen 7 mg/dL (8-23); C Reactive Protein 3.3 mg/L (0.0-4.9); Calcium 9.8 mg/dL (8.5-10.5); Carbon Dioxide 26 mmol/L (22-29); Chloride 103 mmol/L (98-107); Creatine Phosphokinase 152 U/L (26-192); Globulin 2.8 g/dL (1.3-4.6); Glomerular Filtration Rate 100.3 mL/min (90-130); Glucose 99 mg/dL (65-115); Osmolality Calculated 286 mOsm/kg (285-295); Potassium 3.9 mmol/L (3.5-5.1); Sodium 139 mmol/L (136-145); Total Bilirubin 0.4 mg/dL (0.15-1.2)
== END 2022-04-24 10:40 | disposition home or self-care (01) ==
LOC: LAB 10:41
PROVIDERS: PCP Family Medicine; Visit Provider Internal Medicine
DX: R74.8 Abnormal levels of other serum enzymes (principal); R76.8 Other specified abnormal immunological findings in serum; Z79.899 Other long term (current) drug therapy
CPT/HCPCS: 36415; 80053; 82550; 85025; 85651; 86140

== ENCOUNTER → 2022-04-26 13:35 | Outpatient (BNVA) | payer MEDICARE, SELFPAY | PROVIDERS: PCP Family Medicine; Visit Provider Internal Medicine | DX: R76.8 Other specified abnormal immunological findings in serum (principal); M25.50 Pain in unspecified joint; T50.905A Adverse effect of unspecified drugs, medicaments and biological substances, initial encounter; R74.8 Abnormal levels of other serum enzymes; K90.0 Celiac disease; E53.8 Deficiency of other specified B group vitamins; R21 Rash and other nonspecific skin eruption | CPT/HCPCS: 99214 ==

== ENCOUNTER → 2022-06-11 13:44 | Outpatient (BNVA) | payer MEDICARE, SELFPAY | PROVIDERS: PCP Family Medicine; Visit Provider Otolaryngology | DX: M26.621 Arthralgia of right temporomandibular joint (principal) | CPT/HCPCS: 99203 ==

== ENCOUNTER → 2022-08-27 13:46 | Outpatient (BNVA) | payer MEDICARE, SELFPAY | PROVIDERS: PCP Family Medicine; Visit Provider Internal Medicine | DX: R76.8 Other specified abnormal immunological findings in serum (principal); R53.83 Other fatigue; R74.8 Abnormal levels of other serum enzymes; K90.0 Celiac disease; E53.8 Deficiency of other specified B group vitamins; K86.81 Exocrine pancreatic insufficiency | CPT/HCPCS: 36415; 80053; 82550; 84443; 85025; 85651; 86140; 99214 ==

== ENCOUNTER → 2022-10-30 15:15 | Outpatient (BNVA) | payer MEDICARE, SELFPAY | PROVIDERS: PCP Family Medicine; Visit Provider Internal Medicine | DX: R53.83 Other fatigue (principal); R76.8 Other specified abnormal immunological findings in serum; T50.905A Adverse effect of unspecified drugs, medicaments and biological substances, initial encounter; R74.8 Abnormal levels of other serum enzymes; K90.0 Celiac disease; E53.8 Deficiency of other specified B group vitamins; R42 Dizziness and giddiness | CPT/HCPCS: 36415; 80053; 81003; 82550; 82607; 83735; 84100; 84443; 85025; 85651; 86140; 99214 ==

== ENCOUNTER → 2022-12-28 11:50 | Outpatient (BNVA) | payer MEDICARE, SELFPAY | PROVIDERS: PCP Family Medicine; Visit Provider Emergency Medicine | DX: M25.551 Pain in right hip (principal); M16.11 Unilateral primary osteoarthritis, right hip | CPT/HCPCS: 73502 ==

== ENCOUNTER → 2023-01-08 13:38 | Outpatient (BNVA) | payer MEDICARE, SELFPAY | PROVIDERS: PCP Family Medicine; Visit Provider Physician Assistant | DX: M47.816 Spondylosis without myelopathy or radiculopathy, lumbar region (principal); M46.1 Sacroiliitis, not elsewhere classified; M51.36 Other intervertebral disc degeneration, lumbar region; M25.551 Pain in right hip | CPT/HCPCS: 72110; 99204 ==

== ENCOUNTER 2023-02-05 11:00 | Outpatient (CLI) | payer MEDICARE, SELFPAY ==
--- NOTE | 2023-02-05 11:00 | MR_ITS ---
WS: [id number] MRI LUMBAR SPINE NONCONTRAST TECHNIQUE: Sagittal T1, T2 and STIR imaging. Axial T1 and T2 imaging. CLINICAL INFORMATION: lower back pain COMPARISON: None. FINDINGS: Mild lumbar curve. No acute compression. No high-grade central canal stenosis. L1-L2: Mild annular bulging. Mild facet arthropathy. Spinal canal and foramen are patent. L2-L3: Mild annular bulging. Slight narrowing of the RIGHT subarticular recess. Mild RIGHT foraminal narrowing. L3-L4: Mild annular bulging. Mild facet arthropathy. Spinal canal and foramina are patent. L4-L5: Mild annular bulging. Slight narrowing of the subarticular recess bilaterally. Mild facet arth ropathy. Mild RIGHT foraminal narrowing. L5-S1: Minimal annular bulging. Spinal canal and foramen are patent. Mild facet arthropathy. Visualized pelvic bony structures: Normal. Paravertebral soft tissues: Normal. IMPRESSION: 1. Mild lumbar curve. No acute compression. No high-grade central canal stenosis. 2. Mild annular bulging L4-5 with slight narrowing of the subarticular recess bilaterally. Mild RIGH T greater than LEFT foraminal narrowing. 3. Mild annular bulging L2-3 with slight narrowing RIGHT subarticular recess. 4. Mild facet arthropathy L3-L5.
--- NOTE | 2023-02-05 11:45 | MR_ITS ---
WS: [id number] EXAMINATION: MR hip LT wo con* [id number] ORDER DATE: 02/05/2023 11:45 AM COMPARISON: None. HISTORY: groin pain CONTRAST: None. TECHNIQUE: Coronal STIR of the Pelvis. Coronal proton density, coronal T1, axial T2 fat sat, axial T1 , sagittal T2 fat sat, and sagittal T1 performed of the hip. FINDINGS: Moderate degenerative arthritis both hips with joint space narrowing. Hypertrophic changes along the acetabulum and head neck junction. Osteopenia. Degenerative arthritis lower lumbar spine. No evidence of avascular necrosis in either femoral head or neck. No significant subchondral edema in either hip. Normal bone marrow signal in the femoral heads and acetabulum bilaterally. No subchondra l collapse. Normal pubic rami. Normal bone marrow signal in the sacrum and iliac wings. Normal bone marrow signal in the proximal femurs. Mild degenerative changes of the pubic symphysis. Sigmoid diverticulosis. IMPRESSION: 1. Moderate degenerative narrowing both hips. No evidence of avascular necrosis or subchondral edema . 2. Normal bone marrow signal in the sacrum and iliac wings. 3. Sigmoid diverticulosis. 4. No other acute findings.
== END 2023-02-05 11:01 | disposition home or self-care (01) ==
PROVIDERS: PCP Family Medicine; Visit Provider Physician Assistant
DX: M51.26 Other intervertebral disc displacement, lumbar region (principal)
CPT/HCPCS: 72148; 73721

== ENCOUNTER 2023-02-06 12:27 | Outpatient (CLI) | payer MEDICARE, SELFPAY ==
--- NOTE | 2023-02-06 | MR_ITS ---
WS: [id number] MRI OF THE RIGHT HIP WITHOUT GADOLINIUM ENHANCEMENT. INDICATION: Groin pain TECHNIQUE: Coronal T1, coronal T2 fat-sat, axial T2 fat-sat, axial T1, and sagittal T2 fat-sat with a ttention to the RIGHT hip. FINDINGS: Moderate degenerative narrowing RIGHT hip. No edema in the femoral head or acetabulum. Normal femoral head-neck junction. No acute fractures. No significant joint effusion. Proximal femoral shaft is nor mal in appearance. No evidence of avascular necrosis or subchondral collapse. Normal visualized RIGHT iliac wing and RIG HT pubic rami. Degenerative changes pubic symphysis. No significant soft tissue edema. Normal greater trochanter. No RIGHT inguinal lymphadenopathy. Normal visualized soft tissues. IMPRESSION: 1. Moderate degenerative narrowing RIGHT hip. No acute fractures. 2. No evidence of avascular necrosis or subchondral edema 3. Normal bone marrow signal in the partially visualized sacrum and RIGHT iliac wing. 4. Sigmoid diverticulosis. 5. No other acute findings.
== END 2023-02-06 12:28 | disposition home or self-care (01) ==
PROVIDERS: PCP Family Medicine; Visit Provider Physician Assistant
DX: R10.31 Right lower quadrant pain (principal); M16.11 Unilateral primary osteoarthritis, right hip; K57.30 Diverticulosis of large intestine without perforation or abscess without bleeding; N39.0 Urinary tract infection, site not specified; N30.10 Interstitial cystitis (chronic) without hematuria; N95.2 Postmenopausal atrophic vaginitis; Z87.440 Personal history of urinary (tract) infections
CPT/HCPCS: 73721; 99214

== ENCOUNTER → 2023-02-07 09:11 | Outpatient (BNVA) | payer MEDICARE, SELFPAY | PROVIDERS: PCP Family Medicine; Visit Provider Physician Assistant | DX: M47.818 Spondylosis without myelopathy or radiculopathy, sacral and sacrococcygeal region (principal); M16.11 Unilateral primary osteoarthritis, right hip | CPT/HCPCS: 99213 ==

== ENCOUNTER 2023-04-25 15:05 | Outpatient (CLI) | payer MEDICARE, SELFPAY ==
--- NOTE | 2023-04-25 15:00 | XR_ITS ---
WS: [email or web address] DEXA (DUAL ENERGY X-RAY ABSORPTIOMETRY) Bone mineral density was performed using a [employer] machine. HISTORY: Z78.0 - Asymptomatic menopausal state COMPARISON: None available. Lumbar spine BMD (L1-L4): 1.171 T score: -0.2 Z score: 0.7 Total hip BMD: Left: 0.847 g/cm2. T score: -1.3 Z score: -0.5 Right: 0.844 g/cm2. T score: -1.3 Z score: -0.5 10 year probability of a major osteoporotic fracture is 14.7%. IMPRESSION: OSTEOPENIA based upon the WHO classification for females.
--- NOTE | 2023-04-25 15:23 | MM_ITS ---
WS: [email or web address] Bilateral screening 3D tomosynthesis digital mammogram, 04/25/2023 Clinical Data: Z12.39 - Encounter for other screening for malignant neop... Comparison: 04/18/2022, 04/12/2021, 03/24/2020, 03/25/2014, 08/17/2011, 09/25/1999. Findings: The breast parenchymal pattern shows fibroglandular tissue. No spiculated masses or clustered calcifi cations are seen. There are no secondary signs of carcinoma. Impression: 1. Negative bilateral mammogram unchanged. 2. Recommend annual screening mammograms. MM/[place] [id number] BIRADS: 1-Negative FOLLOW UP: 1 Year Follow-up The CAD fact checker was used.
== END 2023-04-25 15:06 | disposition home or self-care (01) ==
LOC: RAD 15:05
PROVIDERS: PCP Family Medicine; Visit Provider Family Medicine
DX: Z12.31 Encounter for screening mammogram for malignant neoplasm of breast (principal); Z13.820 Encounter for screening for osteoporosis; Z78.0 Asymptomatic menopausal state; M85.80 Other specified disorders of bone density and structure, unspecified site
CPT/HCPCS: 77063; 77067; 77080

== ENCOUNTER → 2023-06-06 13:34 | Outpatient (BNVA) | payer MEDICARE, SELFPAY | PROVIDERS: PCP Family Medicine; Visit Provider Internal Medicine | DX: R76.8 Other specified abnormal immunological findings in serum (principal); T50.905A Adverse effect of unspecified drugs, medicaments and biological substances, initial encounter; R74.8 Abnormal levels of other serum enzymes; K90.0 Celiac disease; E53.8 Deficiency of other specified B group vitamins; N30.10 Interstitial cystitis (chronic) without hematuria; M47.818 Spondylosis without myelopathy or radiculopathy, sacral and sacrococcygeal region; M53.3 Sacrococcygeal disorders, not elsewhere classified; X58.XXXA Exposure to other specified factors, initial encounter | CPT/HCPCS: 36415; 80053; 82550; 85025; 85651; 86140; 99214 ==

== ENCOUNTER → 2023-12-04 14:25 | Outpatient (BNVA) | payer MEDICARE, SELFPAY | PROVIDERS: PCP Family Medicine; Referring Provider Family Medicine; Visit Provider Family Medicine | DX: R19.7 Diarrhea, unspecified (principal) | CPT/HCPCS: 87493 ==

== ENCOUNTER → 2024-01-16 10:56 | Outpatient (BNVA) | payer MEDICARE, SELFPAY | PROVIDERS: PCP Family Medicine; Visit Provider Family Medicine | DX: R30.0 Dysuria (principal) | CPT/HCPCS: 81000; 87077; 87086; 87184 ==

== ENCOUNTER → 2024-02-11 15:22 | Outpatient (BNVA) | payer MEDICARE, SELFPAY | PROVIDERS: PCP Family Medicine; Visit Provider Family Medicine | DX: R30.0 Dysuria (principal) | CPT/HCPCS: 81000; 87086 ==

== ENCOUNTER → 2024-03-17 11:08 | Outpatient (BNVA) | payer MEDICARE, SELFPAY | PROVIDERS: PCP Family Medicine; Visit Provider Family Medicine | DX: Z13.220 Encounter for screening for lipoid disorders (principal); R53.83 Other fatigue; K90.0 Celiac disease; R76.8 Other specified abnormal immunological findings in serum; M12.9 Arthropathy, unspecified; R74.8 Abnormal levels of other serum enzymes; Z13.6 Encounter for screening for cardiovascular disorders; L98.9 Disorder of the skin and subcutaneous tissue, unspecified; R00.2 Palpitations | CPT/HCPCS: 80053; 80061; 82550; 84443; 85025; 85651; 86140 ==

== ENCOUNTER → 2024-03-23 14:39 | Outpatient (BNVA) | payer MEDICARE, SELFPAY | PROVIDERS: PCP Family Medicine; Visit Provider Internal Medicine Rheumatology | DX: Z79.899 Other long term (current) drug therapy (principal); R76.8 Other specified abnormal immunological findings in serum; M06.041 Rheumatoid arthritis without rheumatoid factor, right hand; M06.042 Rheumatoid arthritis without rheumatoid factor, left hand; Z71.85 Encounter for immunization safety counseling | CPT/HCPCS: 99214 ==

== ENCOUNTER → 2024-04-09 15:43 | Outpatient (BNVA) | payer MEDICARE, SELFPAY | PROVIDERS: PCP Family Medicine; Visit Provider Emergency Medicine | DX: R30.0 Dysuria (principal); N39.0 Urinary tract infection, site not specified | CPT/HCPCS: 81000; 87086 ==

== ENCOUNTER 2024-04-30 11:16 | Outpatient (CLI) | payer MEDICARE, SELFPAY ==
--- NOTE | 2024-04-30 11:20 | MM_ITS ---
WS: [email or web address] BILATERAL SCREENING DIGITAL TOMOSYNTHESIS MAMMOGRAM WITH CAD HISTORY: Z12.39 - Encounter for other screening for malignant neop... COMPARISON: 04/25/2023, 04/18/2022 and 03/24/2020 Bilateral CC and MLO views with tomosynthesis and synthetic mammography submitted. Computer aided det ection analyzed. Breast composition: There are scattered areas of fibroglandular density. No suspicious masses, microc alcifications or architectural distortion. Long-term stability of a well-circumscribed mass upper out er quadrant LEFT breast measures 8 x 6 x 5 mm. Most likely this is a benign lymph node. There are few additional benign calcifications. MM/MM scr BI tomosynthesis [id number] IMPRESSION: BI-RADS: 2 - Benign. FOLLOW UP: 1 Year Follow-up
== END 2024-04-30 11:17 | disposition home or self-care (01) ==
LOC: MOBLMAM 11:40
PROVIDERS: PCP Family Medicine; Visit Provider Family Medicine
DX: Z12.31 Encounter for screening mammogram for malignant neoplasm of breast (principal); R92.323 Mammographic fibroglandular density, bilateral breasts; N63.21 Unspecified lump in the left breast, upper outer quadrant; R92.1 Mammographic calcification found on diagnostic imaging of breast
CPT/HCPCS: 77063; 77067

== ENCOUNTER → 2024-06-04 10:45 | Outpatient (BNVA) | payer MEDICARE, SELFPAY | PROVIDERS: PCP Family Medicine; Visit Provider Family Medicine | DX: Z79.899 Other long term (current) drug therapy (principal) | CPT/HCPCS: 80076; 82565; 85025; 85651; 86140 ==

== ENCOUNTER → 2024-07-06 14:35 | Outpatient (BNVA) | payer MEDICARE, SELFPAY | PROVIDERS: PCP Family Medicine; Visit Provider Internal Medicine Rheumatology | DX: R76.8 Other specified abnormal immunological findings in serum (principal); M06.041 Rheumatoid arthritis without rheumatoid factor, right hand; M06.042 Rheumatoid arthritis without rheumatoid factor, left hand; Z79.899 Other long term (current) drug therapy; Z71.85 Encounter for immunization safety counseling | CPT/HCPCS: 73630; 81001; 87086; 99214 ==

== ENCOUNTER 2024-07-13 12:47 | Outpatient (CLI) | payer MEDICARE, SELFPAY | END 2024-07-13 12:48 | disposition home or self-care (01) | LOC: LAB 12:49 | PROVIDERS: PCP Family Medicine; Visit Provider Internal Medicine Rheumatology | DX: N39.0 Urinary tract infection, site not specified (principal) | CPT/HCPCS: 87086 ==

== ENCOUNTER 2024-07-30 14:15 | Outpatient (CLI) | payer MEDICARE, SELFPAY ==
[2024-07-30 14:44] LABS: Bilirubin Urine Negative (Negative); Blood Urine Negative (Negative); Glucose Urine UA Negative (Normal); Ketones Urine Negative (Negative); Leukocyte Esterase Urine Negative (Negative); Nitrate Urine Negative (Negative); Protein Urine Negative (Negative); Specific Gravity, Urine 1.003 (1.005-1.030); Urine Appearance Clear (CLEAR); Urine Color Yellow (Yellow); Urobilinogen Urine 0.2 mg/dL (Negative)
[2024-07-30 15:04] LABS: UA Manual Slide Review YES; UA Slide Review UA Slide Review Perf
[2024-07-30 15:05] LABS: Hyaline Casts Urine RARE /lpf; Mucus Urine TRACE /hpf; Squamous Epithelial Cell Urine 0-4 /hpf (0-5)
== END 2024-07-30 14:16 | disposition home or self-care (01) ==
LOC: LAB 14:18
PROVIDERS: PCP Family Medicine; Visit Provider Internal Medicine Rheumatology
DX: N39.0 Urinary tract infection, site not specified (principal)
CPT/HCPCS: 81001; 87086

== ENCOUNTER → 2024-10-01 10:55 | Outpatient (BNVA) | payer MEDICARE, SELFPAY | PROVIDERS: PCP Family Medicine; Visit Provider Nurse Practitioner | DX: J02.9 Acute pharyngitis, unspecified (principal) | CPT/HCPCS: 87070; 87880 ==

== ENCOUNTER → 2024-10-06 12:54 | Outpatient (BNVA) | payer MEDICARE, SELFPAY | PROVIDERS: PCP Family Medicine; Visit Provider Dermatology | DX: D22.112 Melanocytic nevi of right lower eyelid, including canthus (principal); D22.39 Melanocytic nevi of other parts of face; L82.1 Other seborrheic keratosis; L81.4 Other melanin hyperpigmentation; I78.8 Other diseases of capillaries | CPT/HCPCS: 99203 ==

== ENCOUNTER → 2024-10-26 14:14 | Outpatient (BNVA) | payer MEDICARE, SELFPAY | PROVIDERS: PCP Family Medicine; Visit Provider Internal Medicine Rheumatology | DX: R76.8 Other specified abnormal immunological findings in serum (principal); M06.041 Rheumatoid arthritis without rheumatoid factor, right hand; M06.042 Rheumatoid arthritis without rheumatoid factor, left hand; Z79.899 Other long term (current) drug therapy; Z71.85 Encounter for immunization safety counseling; N39.0 Urinary tract infection, site not specified; K90.0 Celiac disease | CPT/HCPCS: 36415; 80053; 81001; 82306; 85025; 85651; 86140; 86480; 86704; 86803; 87086; 87340; 99215 ==

== ENCOUNTER → 2025-04-06 11:34 | Outpatient (BNVA) | payer MEDICARE, SELFPAY | PROVIDERS: PCP Family Medicine; Referring Provider Internal Medicine Rheumatology; Visit Provider Student in an Organized Health Care Education/Training Program | DX: N30.10 Interstitial cystitis (chronic) without hematuria (principal) | CPT/HCPCS: 81001; 87086 ==

== ENCOUNTER → 2025-04-07 12:56 | Outpatient (BNVA) | payer MEDICARE, SELFPAY | PROVIDERS: PCP Family Medicine; Visit Provider Internal Medicine Rheumatology | DX: R76.89 Other specified abnormal immunological findings in serum (principal); M06.041 Rheumatoid arthritis without rheumatoid factor, right hand; M06.042 Rheumatoid arthritis without rheumatoid factor, left hand; Z79.899 Other long term (current) drug therapy; Z71.85 Encounter for immunization safety counseling; N39.0 Urinary tract infection, site not specified; M06.09 Rheumatoid arthritis without rheumatoid factor, multiple sites | CPT/HCPCS: 36415; 80076; 82565; 85025; 85651; 86140; 99214 ==

== ENCOUNTER 2025-05-07 13:21 | Outpatient (CLI) | payer MEDICARE, SELFPAY ==
--- NOTE | 2025-05-07 13:29 | XR_ITS ---
WS: [email or web address] XR hip RT 2-3V wo/w pel* [id number] REASON FOR EXAM: M25.551 - Pain in right hip FINDINGS: No fracture or focal bone lesion. Moderate narrowing of the joint space with significant subchondral sclerosis and osteophytosis of the acetabulum and femoral head. XR/XR hip RT 2-3V wo/w pel* [id number] IMPRESSION: Moderate osteoarthritis of the right hip which has progressed since the previou s examination of 12/28/2022.
--- NOTE | 2025-05-07 13:29 | XR_ITS ---
WS: [email or web address] XR knee RT 3V* [id number] REASON FOR EXAM: M25.561 - Pain in right knee FINDINGS: No fracture or focal bone lesion. Joint spaces of the knee are intact and well preserved. XR/XR knee RT 3V* [id number] IMPRESSION: No significant bone or joint abnormality.
--- NOTE | 2025-05-07 13:29 | XR_ITS ---
WS: [email or web address] XR lumbar spine 2-3V* [id number] REASON FOR EXAM: M47.816 - Spondylosis without myelopathy or radiculopathy... FINDINGS: Minimal rotatory dextroscoliosis. Mild exaggeration of lordosis. No focal lesion or significant compression deformity of the lumbar vertebrae. Mild to moderate narrowing of the disc spaces L2-S1 with mild endplate sclerosis and osteophytosis. Remainder of the intervertebral disc spaces are intact and relatively well preserved. No spondylolysis and no significant spondylolisthesis. XR/XR lumbar spine 2-3V* [id number] IMPRESSION: Moderate degenerative spondylosis.
--- NOTE | 2025-05-07 15:00 | XR_ITS ---
WS: [email or web address] DEXA (DUAL ENERGY X-RAY ABSORPTIOMETRY) Bone mineral density was performed using a [employer] machine. HISTORY: Z78.0 - Asymptomatic menopausal state COMPARISON: 04/25/2023 Lumbar spine BMD (L1-L4): 1.034 g/cm2 T score: -1.2 Z score: -0.2 Total hip BMD: Left: 0.807 g/cm2. T score: -1.6 Z score: -0.7 Right: 0.808 g/cm2. T score: -1.6 Z score: -0.7 10 year probability of a major osteoporotic fracture is 15.7%. Compared to the prior study from 04/25/2023. Lumbar spine bone mineral density has decreased by 7.0%. Bilateral hips bone mineral density has decreased by 4.5%. XR/XR DEXA axial skeleton* [id number] IMPRESSION: OSTEOPENIA based upon the WHO classification for females. Significant decrease in bone mineral density within the lumbar spine and hips s roman the prior study.
== END 2025-05-07 13:22 | disposition home or self-care (01) ==
LOC: RAD 13:23
PROVIDERS: PCP Family Medicine; Visit Provider Family Medicine
DX: Z13.820 Encounter for screening for osteoporosis (principal); M85.89 Other specified disorders of bone density and structure, multiple sites; M41.9 Scoliosis, unspecified; M48.07 Spinal stenosis, lumbosacral region; M25.561 Pain in right knee; M25.551 Pain in right hip
CPT/HCPCS: 72100; 73502; 73562; 77080